=== PATIENT | female | born 1970 | race Caucasian/White ===

== ENCOUNTER → 2017-11-01 | Outpatient (CLI) | payer MEDICAID | LOC: FIMAGING 15:26 | PROVIDERS: ATTEND Midwife | DX: N92.6 Irregular menstruation, unspecified (principal) | CPT/HCPCS: 76856-PO ==

== ENCOUNTER → 2018-08-27 | Outpatient (CLI) | payer MEDICAID | LOC: FIMAGING 09:04 | PROVIDERS: ATTEND Obstetrics & Gynecology | DX: Z87.42 Personal history of other diseases of the female genital tract (principal) ==